=== PATIENT | male | born 1975 | race Caucasian/White ===

== ENCOUNTER 2018-04-13 05:43 | Inpatient (IN) ==
[2018-04-13] MEDS ORDERED: Aspirin 81 MG TAB.CHEW PO ONE (05:57)
--- NOTE | 2018-04-13 06:06 | Emergency Department Note ---
Disposition Clinical Impression: Bradycardia Chest pain Qualifiers: Chest pain type: unspecified Qualified Code(s): R07.9 - Chest pain, unspecified Hypotension Qualifiers: Hypotension type: unspecified hypotension type Qualified Code(s): I95.9 - Hypotension, unspecified Disposition: Admitted As Inpatient Condition: Serious Time of Disposition: 06:53 Chest Pain HPI - General Chief Complaint: ED Chest Pain Stated Complaint: chest pain Time Seen by Provider: 04/13/18 05:44 Source: patient Mode of arrival: private vehicle Limitations: no limitations Vital Signs Reviewed: Yes Nursing Notes Reviewed: Yes - History of Present Illness HPI Narrative: 43-year-old male no medical history presents to the ER due to chest pain. It awoke him from sleep roughly 5 AM. Denies prior history of this previously. Denies any recent illnesses. It felt like a heaviness in his chest as well as shortness of breath. He broke out into a sweat when he got here and felt nauseated. No vomiting. No prior history of coronary artery disease. Denies any alcohol or drug use. No other complaints. 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 Denies: vomiting Treatments prior to arrival chest pain: none - Related Data On Oral Contraceptives: No Home Medications Medication Instructions Recorded Confirmed Advil 01/25/17 Previous Rx's Medication Instructions Recorded Amoxicillin [Amoxil] 500 mg PO BID #20 capsule 01/25/17 Ibuprofen [Motrin] 800 mg PO Q8HR #30 tablet 01/25/17 Magic Mouthwash [Magic Mouthwash 10 ml PO QID #240 ml 01/25/17 BLM] Allergies Allergy/AdvReac Type Severity Reaction Status Date / Time No Known Allergies Allergy Verified 01/25/17 19:53 All systems ED: reviewed and negative except as stated. Constitutional: Denies: fever Cardiovascular: Reports: chest pain Respiratory: Reports: dyspnea. Denies: cough Gastrointestinal: Reports: nausea. Denies: abdominal pain, vomiting, diarrhea Chest Pain PMH - Past Medical History Medical history: Reports: no medical history Surgical history: Reports: no surgical history - Social History Smoking Status: Current every day smoker Alcohol use: Reports: none Drug use: Reports: none Physical Exam - General Limitations: no limitations General appearance: alert, in distress - Head Head exam: atraumatic, normocephalic - Eye Eye exam: Present: normal appearance - ENT ENT exam: normal exam - Neck Neck exam: Present: normal inspection - Chest Chest inspection: Present: normal inspection, symmetric chest wall rise - Respiratory Respiratory exam: Present: normal lung sounds bilaterally - Cardiovascular Cardiovascular exam: Present: regular rate, normal rhythm, normal heart sounds - Abdominal Exam Abdominal exam: Present: soft, Non-Tender. Absent: tenderness, distention, rigidity - Extremities Exam Extremities exam: Present: normal inspection, full ROM - Expanded Upper Extremity Exam Shoulder exam: Present: normal inspection, full ROM Arm exam: Present: normal inspection, full ROM Elbow exam: Present: normal inspection, full ROM Forearm/Wrist exam: Present: normal inspection, full ROM Hand exam: Present: normal inspection, full ROM - Expanded Lower Extremity Exam Hip/Pelvis exam: Present: normal inspection, full ROM Upper leg exam: Present: normal inspection, full ROM Knee exam: Present: normal inspection, full ROM Lower leg exam: Present: normal inspection, full ROM Ankle exam: Present: normal inspection, full ROM Foot/toe exam: Present: normal inspection, full ROM - Skin Skin exam: Present: warm, dry Course Course Narrative: Patient seen and examined. Vital signs reviewed. He appears generally unwell on exam. His initial EKG does not meet STEMI criteria. However we will continue serial EKGs, chest x-ray, labs. Patient given aspirin. He will require admission. - Reevaluation(s) Reevaluation #1: Continued serial EKGs show no true progression however the patient became hypotensive and bradycardic necessitating atropine. Crash cart in the room. Patient attached pads. - Consultations Consultation #1: I spoke with the tool and die supervisor Dr. Palma. Discussed the patient 's history exam EKG and concerns. Plan to send the EKG for his interpretation as well. Time: 06:20 Consultation #2: I spoke with the on-call mobile heavy equipment mechanic again as the patient was having episodes of bradycardia into the 40s and became hypotensive requiring a push of atropine. Dr. Palma recommends to make the patient a STEMI alert to hold on giving him Brilinta and to bolus with heparin. Time: 06:39 Vital Signs Temperature 97.6 F 04/13/18 05:46 Pulse Rate 69 04/13/18 05:46 Respiratory Rate 18 04/13/18 05:46 Blood Pressure 111/69 04/13/18 05:46 O2 Sat by Pulse Oximetry 95 04/13/18 05:46 Temperature 97.6 F 04/13/18 05:46 Pulse Rate 59 04/13/18 06:52 Respiratory Rate 20 04/13/18 06:52 Blood Pressure 115/77 04/13/18 06:52 O2 Sat by Pulse Oximetry 98 04/13/18 06:52 Oxygen Delivery Oxygen Delivery Room Air Chest Pain - MDM Narrative Medical decision making narrative: 43-year-old male presents to the ER due to chest pain shortness of breath nausea and diaphoresis. Initial EKG was worrisome given his symptoms and story however he does not meet STEMI criteria on his EKG. He did have an episode of bradycardia and hypotension requiring medical reversal. This case was discussed multiple times with the tool and die supervisor who we decided to make a STEMI alert for expedition of care. The patient was given aspirin and loaded with heparin. He is admitted to the intensive care unit by interventional cardiology for emergent left heart catheterization. - Lab Data Lab results reviewed: Yes I reviewed the patient's lab results. Result diagrams: 04/13/18 05:55 04/13/18 05:55 Lab Results 04/13/18 04/13/18 04/13/18 Range/Units 05:55 05:55 05:55 WBC 11.6 H (4.3-11.1) K/mcL RBC 5.77 H (4.19-5.50) M/mcL Hgb 16.9 (12.9-16.9) g/dL Hct 49.5 (37.5-50.1) % MCV 85.8 (83.0-100.0) fL MCH 29.3 (28.0-33.3) pg MCHC 34.1 (31.6-35.5) g/dL RDW 13.2 (11.5-14.5) % Plt Count 239 (140-400) K/mcL MPV 10.2 (9.4-12.4) fL Immature Gran % 0.4 (0-4) % Seg Neutrophils % 69.2 % Lymphocytes % 21.6 % Monocytes % 5.7 % Eosinophils % 2.8 % Basophils % 0.3 % Neutrophils # 8.0 (1.6-8.9) K/mcL Lymphocytes # 2.5 (0.6-4.6) K/mcL Monocytes # 0.7 (0.0-1.3) K/mcL Eosinophils # 0.3 (0.0-0.6) K/mcL Basophils # 0.0 (0.0-0.2) K/mcL PT 12.0 (9.4-12.1) Seconds INR 1.1 APTT 27.8 (26.0-36.0) Seconds Sodium (136-145) mEq/L Potassium (3.5-5.1) mEq/L Chloride (98-107) mEq/L Carbon Dioxide (23-29) mEq/L BUN (6-20) mg/dL Creatinine (0.70-1.30) mg/dL Est GFR ( Amer) (> 60) Est GFR (Non-Af Amer) (> 60) BUN/Creatinine Ratio (6-26) Glucose (70-105) mg/dL Calculated Osmolality (280-300) Calcium (8.6-10.3) mg/dL Troponin I (< 0.04) ng/mL B-Natriuretic Peptide 8 (Less than 100) pg/mL 04/13/18 Range/Units 05:55 WBC (4.3-11.1) K/mcL RBC (4.19-5.50) M/mcL Hgb (12.9-16.9) g/dL Hct (37.5-50.1) % MCV (83.0-100.0) fL MCH (28.0-33.3) pg MCHC (31.6-35.5) g/dL RDW (11.5-14.5) % Plt Count (140-400) K/mcL MPV (9.4-12.4) fL Immature Gran % (0-4) % Seg Neutrophils % % Lymphocytes % % Monocytes % % Eosinophils % % Basophils % % Neutrophils # (1.6-8.9) K/mcL Lymphocytes # (0.6-4.6) K/mcL Monocytes # (0.0-1.3) K/mcL Eosinophils # (0.0-0.6) K/mcL Basophils # (0.0-0.2) K/mcL PT (9.4-12.1) Seconds INR APTT (26.0-36.0) Seconds Sodium 139 (136-145) mEq/L Potassium 2.8 L (3.5-5.1) mEq/L Chloride 104 (98-107) mEq/L Carbon Dioxide 28 (23-29) mEq/L BUN 4 L (6-20) mg/dL Creatinine 0.90 (0.70-1.30) mg/dL Est GFR ( Amer) > 60 (> 60) Est GFR (Non-Af Amer) > 60 (> 60) BUN/Creatinine Ratio 4 L (6-26) Glucose 156 H (70-105) mg/dL Calculated Osmolality 288 (280-300) Calcium 9.3 (8.6-10.3) mg/dL Troponin I < 0.03 (< 0.04) ng/mL B-Natriuretic Peptide (Less than 100) pg/mL - Radiology Data Radiology results reviewed: Yes I reviewed the patient's radiology results. - EKG Data EKG attestation: Yes I reviewed and interpreted this EKG. EKG results narrative: EKG demonstrates sinus bradycardia with a rate of 57 bpm. Normal axis. Prolonged QRS duration of 138. Other intervals normal. Normal R-wave progression. There are slight subtle less than [address] elevations in leads 2 and aVF. No reciprocal changes. No prior EKG for comparison. Repeat EKG continues to demonstrate sinus bradycardia. Normal axis. Prolonged QRS duration. Normal R-wave progression. Continued less than 1 mm elevation in leads 2 and aVF. No reciprocal changes. No changes from prior. Repeat EKG demonstrates sinus bradycardia with a rate of 57 bpm. Normal axis. Prolonged QRS duration 1:30. Other intervals normal. Continued elevations of leads 2 and aVF. No gross changes from prior EKG. Heart Score - Score History: Highly Suspicious EKG: Non Specific repolarisation Disturbance Age: Less than 45 Risk Factors: No risk factors known Troponin: Less than normal limit HEART Score Total: 3
[2018-04-13 06:15] LABS: Basophils % 0.3 %; Eosinophils # 0.3 K/mcL (0.0-0.6); Eosinophils % 2.8 %; Hematocrit 49.5 % (37.5-50.1); Hemoglobin 16.9 g/dL (12.9-16.9); Immature Granulocytes % 0.4 % (0-4); Lymphocytes # 2.5 K/mcL (0.6-4.6); Lymphocytes % 21.6 %; Mean Corpuscular HGB Conc 34.1 g/dL (31.6-35.5); Mean Corpuscular Hemoglobin 29.3 pg (28.0-33.3); Mean Corpuscular Volume 85.8 fL (83.0-100.0); Mean Platelet Volume 10.2 fL (9.4-12.4); Monocytes # 0.7 K/mcL (0.0-1.3); Monocytes % 5.7 %; Platelet Count 239 K/mcL (140-400); Red Blood Count 5.77 M/mcL (4.19-5.50); Red Cell Distribution Width 13.2 % (11.5-14.5); Segmented Neutrophils % 69.2 %
[2018-04-13 06:18] LABS: INR 1.1
[2018-04-13 06:21] LABS: Activated Partial Thrombo Time 27.8 Seconds (26.0-36.0)
[2018-04-13 06:31] LABS: BUN/Creatinine Ratio 4 (6-26); Blood Urea Nitrogen 4 mg/dL (6-20); Calcium 9.3 mg/dL (8.6-10.3); Carbon Dioxide 28 mEq/L (23-29); Chloride 104 mEq/L (98-107); Glucose 156 mg/dL (70-105); Osmolality,Calculated 288 (280-300); Potassium 2.8 mEq/L (3.5-5.1); Sodium 139 mEq/L (136-145); eGFR For Non-African Americans > 60 (> 60)
[2018-04-13 06:33] LABS: Troponin I < 0.03 ng/mL (< 0.04)
[2018-04-13] MEDS ORDERED: *HR* Heparin 5,000 UNIT/ML VIAL IVP ONE (06:34)
[2018-04-13] MEDS ORDERED: *HR* Heparin 5,000 UNIT/ML VIAL IVP PRN ×2 (06:34)
[2018-04-13] MEDS ORDERED: Isovue-370 500 ML INFUS..BTL IV ONE (06:35)
[2018-04-13] MEDS ORDERED: *HR* Atropine Sulfate 1 MG/10 ML SYRINGE IVP ONE (06:39)
[2018-04-13] MEDS ORDERED: Heparin 25,000 UNIT/500 ML D5W 25,000 UNIT/500 ML BAG IVC SCH (06:45)
[2018-04-13] MEDS ORDERED: Nitroglycerin 25 MG/250 ML INFUS..BTL IVC SCH (06:45)
[2018-04-13] MEDS ORDERED: Nitroglycerin 25 MG/250 ML INFUS..BTL IVC ONE (06:46)
[2018-04-13] MEDS ORDERED: Heparin 25,000 UNIT/500 ML D5W 25,000 UNIT/500 ML BAG IVC ONE (06:46)
--- NOTE | 2018-04-13 06:53 | Emergency Department Note ---
Disposition Clinical Impression: Bradycardia Chest pain Qualifiers: Chest pain type: unspecified Qualified Code(s): R07.9 - Chest pain, unspecified Hypotension Qualifiers: Hypotension type: unspecified hypotension type Qualified Code(s): I95.9 - Hypotension, unspecified Disposition: Admitted As Inpatient Condition: Serious Time of Disposition: 06:53 General Adult HPI - General Chief complaint: ED Chest Pain Stated complaint: chest pain Time Seen by Provider: 04/13/18 05:44 Source: patient Mode of arrival: private vehicle Limitations: no limitations Nursing Notes Reviewed: Yes Vital Signs Reviewed: Yes - History of Present Illness Pain Scale: 3 - Related Data Home Medications Medication Instructions Recorded Confirmed Advil 01/25/17 Previous Rx's Medication Instructions Recorded Amoxicillin [Amoxil] 500 mg PO BID #20 capsule 01/25/17 Ibuprofen [Motrin] 800 mg PO Q8HR #30 tablet 01/25/17 Magic Mouthwash [Magic Mouthwash 10 ml PO QID #240 ml 01/25/17 BLM] Allergies Allergy/AdvReac Type Severity Reaction Status Date / Time No Known Allergies Allergy Verified 01/25/17 19:53 Constitutional: Denies: fever Cardiovascular: Reports: chest pain Respiratory: Reports: dyspnea. Denies: cough Gastrointestinal: Reports: nausea. Denies: abdominal pain, vomiting, diarrhea Past Medical History - Past Medical History Medical history: Reports: no medical history Surgical history: Reports: no surgical history - Social History Smoking Status: Current every day smoker Smokeless Tobacco Status: No Alcohol use: Reports: none Drug use: Reports: none Physical Exam - General Limitations: no limitations General appearance: alert, in distress Course Vital Signs Temperature 97.6 F 04/13/18 05:46 Pulse Rate 69 04/13/18 05:46 Respiratory Rate 18 04/13/18 05:46 Blood Pressure 111/69 04/13/18 05:46 O2 Sat by Pulse Oximetry 95 04/13/18 05:46 Temperature 97.6 F 04/13/18 05:46 Pulse Rate 62 04/13/18 07:03 Respiratory Rate 18 04/13/18 07:03 Blood Pressure 129/88 04/13/18 07:03 O2 Sat by Pulse Oximetry 97 04/13/18 07:03 Oxygen Delivery Oxygen Delivery Room Air Medical Decision Making - Lab Data Lab results reviewed: Yes I reviewed the patient's lab results. Result diagrams: 04/13/18 05:55 04/13/18 05:55 Lab Results 04/13/18 04/13/18 04/13/18 Range/Units 05:55 05:55 05:55 WBC 11.6 H (4.3-11.1) K/mcL RBC 5.77 H (4.19-5.50) M/mcL Hgb 16.9 (12.9-16.9) g/dL Hct 49.5 (37.5-50.1) % MCV 85.8 (83.0-100.0) fL MCH 29.3 (28.0-33.3) pg MCHC 34.1 (31.6-35.5) g/dL RDW 13.2 (11.5-14.5) % Plt Count 239 (140-400) K/mcL MPV 10.2 (9.4-12.4) fL Immature Gran % 0.4 (0-4) % Seg Neutrophils % 69.2 % Lymphocytes % 21.6 % Monocytes % 5.7 % Eosinophils % 2.8 % Basophils % 0.3 % Neutrophils # 8.0 (1.6-8.9) K/mcL Lymphocytes # 2.5 (0.6-4.6) K/mcL Monocytes # 0.7 (0.0-1.3) K/mcL Eosinophils # 0.3 (0.0-0.6) K/mcL Basophils # 0.0 (0.0-0.2) K/mcL PT 12.0 (9.4-12.1) Seconds INR 1.1 APTT 27.8 (26.0-36.0) Seconds Sodium (136-145) mEq/L Potassium (3.5-5.1) mEq/L Chloride (98-107) mEq/L Carbon Dioxide (23-29) mEq/L BUN (6-20) mg/dL Creatinine (0.70-1.30) mg/dL Est GFR ( Amer) (> 60) Est GFR (Non-Af Amer) (> 60) BUN/Creatinine Ratio (6-26) Glucose (70-105) mg/dL Calculated Osmolality (280-300) Calcium (8.6-10.3) mg/dL Troponin I (< 0.04) ng/mL B-Natriuretic Peptide 8 (Less than 100) pg/mL 04/13/18 Range/Units 05:55 WBC (4.3-11.1) K/mcL RBC (4.19-5.50) M/mcL Hgb (12.9-16.9) g/dL Hct (37.5-50.1) % MCV (83.0-100.0) fL MCH (28.0-33.3) pg MCHC (31.6-35.5) g/dL RDW (11.5-14.5) % Plt Count (140-400) K/mcL MPV (9.4-12.4) fL Immature Gran % (0-4) % Seg Neutrophils % % Lymphocytes % % Monocytes % % Eosinophils % % Basophils % % Neutrophils # (1.6-8.9) K/mcL Lymphocytes # (0.6-4.6) K/mcL Monocytes # (0.0-1.3) K/mcL Eosinophils # (0.0-0.6) K/mcL Basophils # (0.0-0.2) K/mcL PT (9.4-12.1) Seconds INR APTT (26.0-36.0) Seconds Sodium 139 (136-145) mEq/L Potassium 2.8 L (3.5-5.1) mEq/L Chloride 104 (98-107) mEq/L Carbon Dioxide 28 (23-29) mEq/L BUN 4 L (6-20) mg/dL Creatinine 0.90 (0.70-1.30) mg/dL Est GFR ( Amer) > 60 (> 60) Est GFR (Non-Af Amer) > 60 (> 60) BUN/Creatinine Ratio 4 L (6-26) Glucose 156 H (70-105) mg/dL Calculated Osmolality 288 (280-300) Calcium 9.3 (8.6-10.3) mg/dL Troponin I < 0.03 (< 0.04) ng/mL B-Natriuretic Peptide (Less than 100) pg/mL - EKG Data EKG #1 EKG attestation: Yes I reviewed and interpreted this EKG. EKG results narrative: Initial EKG shows a sinus bradycardia with ventricular rate of 57. This arrhythmia. Intraventricular conduction delay. No previous EKG for comparison. There is a scant of ST elevation in the inferior leads but does not meet STEMI criteria. No reciprocal changes. EKG #2 EKG attestation: Yes I reviewed and interpreted this EKG. EKG results narrative: Repeat EKG obtained approximately 30 minutes after the initial EKG is essentially unchanged. Sinus bradycardia with short MI with ventricular rate of 50. Intraventricular conduction delay. Still a hint of inferior ST segment elevation with no reciprocal changes but the ST elevation does not meet STEMI criteria. EKG #3 EKG attestation: Yes I reviewed and interpreted this EKG. EKG results narrative: A third EKG was obtained when patient developed some increased chest pain and became more diaphoretic. This showed sinus bradycardia with a ventricular rate of 57. There does appear to be some increase in the ST segment elevation in the inferior leads but still does not meet STEMI criteria. Patient then developed bradycardia down to a rate of about 40 and became hypotensive with a systolic pressure down to 80. He received atropine 5 mg IV with improvement in his heart rate and blood pressure. Critical Care Time Critical Care Time: Yes Total Critical Care Time: 40 Attestation: Critical care performed: Time is exclusive of separately billable procedures. Time includes: direct patient care, patient reassessment, coordination of patient care, interpretation of data (laboratory data, radiology data, and respiratory data), review of patient's medical records, medical consultation and documentation of patient care. Procedures included in critical care time: Procedures excluded from critical care time: Attestation Statement - Attestation Attestation: I, Jose Paredes MD, personally evaluated this patient and discussed their management with the resident physician. I reviewed the resident's note and agree with the documented findings, medical decision making, and plan of care. 43-year-old male presents to the emergency department with complaint of severe mid substernal chest pain which awoke him from sleep 1 hour prior to arrival. The pain radiated to the back and both shoulders. He did have shortness of breath with the pain and stated it hurt to breathe. He also had nausea but no vomiting. He became diaphoretic. No prior cardiac history. No history of hypertension or diabetes. Patient is a smoker. On examination patient is a well-developed well-nourished male in acute distress. He is very pale and diaphoretic. No cyanosis. There is some tenderness palpation over the anterior chest wall. Breath sounds are clear and equal bilaterally. Heart regular with a mild bradycardia. Abdomen soft and nontender with normal bowel sounds. No pedal edema. Labs and EKG reviewed. EKG suspicious for early inferior infarct but does not meet STEMI criteria. Repeat EKG obtained with slight worsening of the ST elevation. The EKGs were reviewed with the engine installer, Dr. Palma. He initially recommended treating patient with a heparin drip and nitro drip and admission to the hospital. After patient had an episode of increased pain and became bradycardic and hypotensive he was contacted again and decided to go ahead and call a STEMI alert and intact patient to the [facility] immediately.
[2018-04-13] MEDS ORDERED: ISOVUE-370 200 ML INFUS..BTL IV ONE (07:01)
[2018-04-13] MEDS ORDERED: Heparin 1,000 UNITS/500 mL 500 ML ONE (07:01)
[2018-04-13] MEDS ORDERED: *HR* Heparin 10,000 UNIT/10 ML VIAL ONE (07:01)
[2018-04-13] MEDS ORDERED: Nitroglycerin 1,000 MCG/10 ML VIAL IV ONE (07:02)
[2018-04-13] MEDS ORDERED: 0.9 % Sodium Chloride 1,000 ML ONE ×2 (07:02→07:07)
[2018-04-13] MEDS ORDERED: Ondansetron 4 MG/2 ML VIAL IVP ONE (07:06)
[2018-04-13] MEDS ORDERED: Ondansetron 4 MG/2 ML VIAL ONE (07:06)
[2018-04-13] MEDS ORDERED: *HR* FentaNYL (PF) 100 MCG/2 ML VIAL ONE ×2 (07:31→07:38)
[2018-04-13] MEDS ORDERED: *HR* Midazolam HCl 5 MG/5 ML VIAL IVP ONE (07:31)
[2018-04-13] MEDS ORDERED: Tirofiban 12.5 MG/250ML 12.5 MG/250 ML BAG ONE (07:32)
[2018-04-13] MEDS ORDERED: *HR* Atropine Sulfate 1 MG/10 ML SYRINGE ONE (07:32)
[2018-04-13] MEDS ORDERED: *HR* Atropine Sulfate 1 MG/10 ML SYRINGE IV ONE (08:26)
--- NOTE | 2018-04-13 08:36 | Pre-Sedation Evaluation ---
Pre-sedation evaluation - Pre-sedation checklist Date of procedure: 04/13/18 Procedure: [facility] Recent Vitals: Last Vital Signs Temp 97.6 F 04/13/18 05:46 Pulse 64 04/13/18 07:08 Resp 18 04/13/18 07:08 BP 134/96 04/13/18 07:08 Pulse Ox 97 04/13/18 07:08 H&P (including ROS) documented in medical record: Yes Previous reaction to sedatives/anesthetics: No Dietary Status: unknown Airway Assessment: Patient can open mouth completely, TMJ function normal ASA Classification *see protocol: CLASS II-Mild systemic disease, E-EMERGENCY- Add to any of the above to indicate emergent Plan of Care: Pt appropriate candidate for procedure/moderate/conscious sedation , Risks/benefits of procedure/sedation discussed w/ patient/family, If not NPO; Risk of intake outweiged by necessity to perform procedure Cardiac Registry (Cardio Only) - Functional Capacity Functional Capacity: >=4 METS with symptoms - Clincal Frailty Scale Clinical Frailty Scale: Managing Well
[2018-04-13] MEDS ORDERED: Ondansetron 4 MG/2 ML VIAL IVP PRN (08:38)
[2018-04-13] MEDS ORDERED: Nicotine 21 MG PATCH.TD24 TD PRN (08:42)
[2018-04-13] MEDS ORDERED: Tirofiban 12.5 MG/250ML 12.5 MG/250 ML BAG IVC SCH (08:45)
--- NOTE | 2018-04-13 08:49 | Cardiology History & Physical ---
Date of Encounter: 04/13/18 Time of Encounter: 08:45 Assessment and Plan (1) Acute MO Current Visit: Yes Status: Acute Atypical EKG with borderline inferolateral ST elevation with ongoing severe symptoms/angina despite NTG drip. Leukocytosis in this setting suggestive of acute MO. A/R/B of C discussed with him including 1% chance of MO//CVA/ CABG/RICHARD/bleeding. Pt aware and agreeable with proceeding. Cardiac rehab, EF assessment, smoking cessation. The assessment and plan as outlined above was discussed with the patient and/or family members who expressed understanding and agreement. All questions were answered. Qualifiers: Myocardial infarction type: unspecified Involved coronary artery: other coronary artery Qualified Code(s): I21.29 - ST elevation (STEMI) myocardial infarction involving other sites (2) Nicotine dependence Current Visit: Yes Status: Acute Smoking cessation counseled, nicotine patch. The assessment and plan as outlined above was discussed with the patient and/or family members who expressed understanding and agreement. All questions were answered. Qualifiers: Nicotine product type: cigarettes Substance use status: uncomplicated Qualified Code(s): F17.210 - Nicotine dependence, cigarettes, uncomplicated (3) Hypokalemia Current Visit: Yes Status: Acute replete, goal >4. The assessment and plan as outlined above was discussed with the patient and/or family members who expressed understanding and agreement. All questions were answered. History of Present Illness Chief complaint: chest pain HPI: Mr. Silva is a 43 year old male smoker with no previous cardiac history awoke ~ 4am with 10/10 severe chest pressure/pain with nausea. It was associated with diaphoresis and he proceeded to ED. It persisted despite NTG drip and EKG showed subtle inferolateral ST elevation that could be interpreted as early repolarization too. Past Med Surg Social Fam HX - Past Medical History Medical history: no medical history - Past Surgical History Surgical History: no surgical history - Social History Smoking Status: Current every day smoker Smokeless Tobacco Status: No Alcohol use: none Drug use: none Medications and Allergies Advil 01/25/17 [History] Amoxicillin [Amoxil] 500 mg PO BID #20 capsule 01/25/17 [Rx] Ibuprofen [Motrin] 800 mg PO Q8HR #30 tablet 01/25/17 [Rx] Magic Mouthwash [Magic Mouthwash BLM] 10 ml PO QID #240 ml 01/25/17 [Rx] 3 Allergy/AdvReac Type Severity Reaction Status Date / Time No Known Allergies Allergy Verified 01/25/17 19:53 All Systems Review: The remainder of the systems were reviewed and are negative - Constitutional Constitutional: no chills, no fever(s) - EENT Eyes: no blurred vision, no loss of vision Nose, mouth and throat: no bleeding gums, no epistaxis - Cardiovascular Cardiovascular: chest pain at rest, chest pain with exertion, diaphoresis - Respiratory Respiratory: no hemoptysis, no wheezing - Gastrointestinal Gastrointestinal: no hematemesis, no hematochezia - Genitourinary Genitourinary: no hematuria, no nocturia - Musculoskeletal Musculoskeletal: no arthralgias, no back pain - Integumentary Integumentary: no erythema, no unusual bruising - Neurological Neurological: no memory loss, no syncope - Psychiatric Psychiatric: no hallucinations, no panic attacks - Hematological/Lymphatic Hematologic/Lymphatic: no easy bleeding, no easy bruising Physical Examination Vital Signs, Last 4 Hours Pulse Resp BP Pulse Ox 04/13/18 07:08 64 18 134/96 97 04/13/18 07:03 62 18 129/88 97 04/13/18 06:58 65 18 125/88 96 04/13/18 06:52 59 20 115/77 98 General: Other (distressed despite fentanyl) HEENT: Atraumatic Neck: No JVD Cardiac: Reg Rate and Rhythm Lungs: Normal Breath Sounds Neuro: Alert and responsive Abdomen: Soft Skin: No rashes noted on visualized skin Musculoskeletal: No Chest Wall Tenderness Extremities: No Edema Results 04/13/18 05:55 04/13/18 05:55 - EKG Interpretation EKG results cardiology: personally reviewed, sinus rhythm (inferolateral borderline ST elevation versus early repolarization)
--- NOTE | 2018-04-13 08:49 | Invasive Diagnostic Lab Proc ---
Name: Ruy Silva Date of Study: 04/13/2018 Date: 1975 Ht: 70.1in Medical Record#: [id number] Age: 43 Wt: 178.57lb Gender: Male BSA: 1.99 Order #: [id number] BMI: 25.56 Physicians Procedure Physician: Gilbert Palma Referring MD: Referring MD: Staff Name Position Time In [facility], [facility] RT (R) Scrub 07:19 AM David Salvador RN Monitor 07:24 AM Thu Fountain RN Clinical Nurse Leader 07:24 AM Tara Roa RN Clinical Nurse Leader 07:24 AM Indications Indication STEMI Procedures Performed Procedure PRQ CARD REVASC WI 1 VSL L HRT ARTERY/VENTRICLE ANGIO Pre-Procedure Checklist Informed consent is complete signed and on chart. H&P is on chart. ID band is on and ID verified with patient. Patient NPO for procedure The procedure was described for the patient and questions were answered. Blood Pressure: 85/50 ECG is on chart. Rhythm: Sinus Bradycardia Plan of Care Patient will tolerate the procedure without complications. Adequate level of comfort will be maintained. Hemodynamics will remain stable Patient will recover from procedure without complications. Respiratory function will be maintained. Cardiac rhythm will remain stable. Patient temperature will be maintained. Patient and/or family have verbalized understanding of the procedure. Patient Education Chief Complaint/Reason for Test: Cardiac Cath Developmental Category: Adult (18-64 years) Developmentally Appropriate for Age: Yes Learning Barriers: None Education Needs: Procedure Education Method: Verbal Information Taught: Cardiac Cath Educational Evaluation: Able to repeat information Intravenous Access Time IV Size Location DC'd Fluid/Drip Rate Units RN 18g 1 1" Patent On Arrival Rt Antecubital Thu Fountain RN 18g 1 1/4" Patent On Arrival Lt Antecubital Thu Fountain RN Allergies No Known Allergies Vital Signs Time BP (mmHg) HR (bpm) O2 Sat. RR (bpm) LOC 07:22 AM / % 5 = Fully awake and oriented or at pre-proc level 07:22 AM / % 5 = Fully awake and oriented or at pre-proc level 07:39 AM / % 4 = Oriented but drowsy 07:21 AM 127 / 85 63 100 % 29 07:26 AM 130 / 85 54 100 % 17 07:31 AM 132 / 82 74 100 % 21 07:36 AM 111 / 75 56 96 % 16 07:42 AM 128 / 85 60 91 % 14 07:46 AM 131 / 98 83 99 % 13 07:51 AM 115 / 74 84 96 % 19 07:56 AM 124 / 81 84 97 % 17 08:01 AM 132 / 85 81 100 % 18 08:06 AM 135 / 92 80 100 % 22 08:11 AM 126 / 86 74 100 % 27 08:17 AM 127 / 79 84 97 % 19 08:22 AM 120 / 79 77 94 % 19 08:26 AM 122 / 73 71 99 % 13 Procedural Medications Time Medication Dose Units Method Given By 07:22 AM Oxygen 2 L/min nasal cannula Thu Fountain RN 07:39 AM Fentanyl 75 mcg Intravenous Thu Fountain RN 07:42 AM Versed 2 mg Intravenous Thu Fountain RN 07:44 AM Lidocaine 2% 11 ml Subcutaneous Gilbert Palma 07:47 AM Oxygen 6 L/min Oxy Mask Tara Roa RN 07:48 AM Nitroglycerin 200 mcg Intracoronary Cullen Herrmann MD 07:57 AM Heparin 2000 units Intravenous Thu Fountain RN 08:04 AM Aggrastat Bolus: 42 ml Intravenous Thu Fountain RN 08:05 AM Aggrastat 12.5mg/250ml 15 ml/hr Intravenous Thu Fountain RN 08:16 AM Versed 1 mg Intravenous Thu Fountain RN 08:17 AM Fentanyl 25 mcg Intravenous Thu Fountain RN 08:20 AM Versed 1 mg Intravenous Thu Fountain RN 08:20 AM Fentanyl 25 mcg Intravenous Thu Fountain RN 08:21 AM Versed 1 mg Intravenous Thu Fountain RN 08:21 AM Fentanyl 25 mcg Intravenous Thu Fountain RN 08:26 AM Plavix 600 mg Orally Thu Fountain RN ASA Classification: Emergent Procedure: ASA score is assumed Mag Score Preprocedure Postprocedure Activity 2- Moves 4 extremities sustained head lift Activity 2- Moves 4 extremities sustained head lift Circulation 2- SBP +/= 20 points of pre-anesthetic level Circulation 2- SBP +/= 20 points of pre-anesthetic level Consciousness 2- Awake and alert oriented x 3 Consciousness 2- Awake and alert oriented x 3 O2 Saturation 2- Able to maintain O2 satruation of 92% on room air O2 Saturation 2- Able to maintain O2 satruation of 92% on room air Respiratory 2- Able to deep breathe and cough well Respiratory 2- Able to deep breathe and cough well Total Score 10 Total Score 10 Contrast Agent: Isovue Diagnostic Contrast: 111 ml Total Contrast: 111 ml Fluoro Dose: 29 mGy Activated Clotting Time Time Seconds to Clot 07:56 AM 217 08:12 AM 179 Procedure Log Time Note Enter By 07:19 AM CathStat 07:19 AM 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 Bilateral groin prepped with Chloraprep by Thu Fountain RN, then patient was draped. Skin intact. [facility] 07:20 AM Meet and greet completed [facility] 07:20 AM Sign in performed according to hospital policy. [facility] 07:20 AM Procedure start 07:20 [facility] 07:20 AM Vitals capture started with the following parameters, Patient=Adult, Interval=5 min, Initial Pzkxwera=208 mmHg, Deflation Rate=3 mmHg, Cuff placed on Right Arm 07:20 AM Recorded ECG: HR=57 Condition=Condition 1 07:21 AM HR=63 bpm, QTCR=609/85 mmhg, BqW4=291.0 %, Resp=29 B/min 07:22 AM Time: : Oxygen on at 2 L/min per nasal cannula by Thu Fountain RN [facility] AM Time: 07:22 Patient comfortable and pain free: Yes [facility] :22 AM Time: :LOC: 5 = Fully awake and oriented or at pre-proc level [facility] :22 AM Clinical Presentation: STEMI or equivalent [facility] 07:24 AM David Salvador RN Position: Monitor Time in: 07:24 [facility] AM Thu Fountain RN Position: Clinical Nurse Leader Time in: :24 viola 07:25 AM Tara Roa RN Position: Clinical Nurse Leader Time in: 24 [facility] 07:26 AM HR=54 bpm, FUJW=392/85 mmhg, CgU8=331.0 %, Resp=17 B/min, Comment=sb 07:31 AM HR=74 bpm, FRQF=159/82 mmhg, SoG0=893.0 %, Resp=21 B/min 07:36 AM HR=56 bpm, WDCJ=116/75 mmhg, SpO2=96.0 %, Resp=16 B/min, Comment=sb 07:37 AM 75mcg Fentanyl ordered per Dr. Herrmann telephone order for chest pain [email or web address] 07:39 AM Time: 07:22 Patient comfortable and pain free: Yes [email or web address] 07:39 AM Time: 07:22LOC: 5 = Fully awake and oriented or at pre-proc level jcallmila 07:39 AM Time: 07:39 Fentanyl 75 mcg Intravenous Given by Thu Fountain RN 07:41 AM Physician arrived 07:41 jckhadar 07:42 AM Time: 07:42 Versed 2 mg Intravenous Given by Thu Fountain RN 07:42 AM HR=60 bpm, WIDM=242/85 mmhg, SpO2=91.0 %, Resp=14 B/min 07:44 AM Time out performed according to hospital policy [facility] 07:44 AM Time: 07:44 11 ml Lidocaine 2% to right groin Subcutaneous Given by Gilbert Palma 07:46 AM Access obtained by percutaneous puncture. 6Fr 10cm Terumo [place] sheath placed in right Femoral artery. [id number] [facility] 07[facility]46 AM HR=83 bpm, PWCY=310/98 mmhg, SpO2=99.0 %, Resp=13 B/min 07:47 AM Time: 07:47 Oxygen on at 6 L/min per Oxy Mask by Tara Roa RN 07:48 AM 5Fr FR 4 catheter inserted over the wire DN jckhadar 07:48 AM RCA angiography performed in multiple views. [email or web address] 07:48 AM Time: 07:48 Nitroglycerin 200 mcg Intracoronary Given by Cullen Herrmann MD 07:50 AM Catheter removed jckhadar 07:50 AM 5Fr FL 4 catheter inserted over the wire DN viola 07:51 AM LCA angiography performed in multiple views. jcallihan 07:51 AM Lesion found in 1st Marginal. Pre Stenosis: 99 Pre ALONSO Flow: 2: Partial Flow/Perfusion (> 1 but < 3) jcallihan 07:51 AM HR=84 bpm, UWBD=545/74 mmhg, SpO2=96.0 %, Resp=19 B/min, Comment=sr 07:51 AM Circumflex, Obtuse Marginal, Left Posterior Descending, and Left Posterolateral Coronary Arteries with 99 % stenosis. If graft is supplying this area, 0 % stenosis jcallihan 07:52 AM Coronary Dominance: right jcallihan 07:52 AM PCI Status Urgent jcallihan 07:52 AM 6Fr EBU 3.5 Medtronic guide catheter was used to cannulate the PCI vessel successfully. reused? No jcallihan 07:53 AM .014 [place] 190cm guide wire across target lesion- successful. reused? No jcallan 07:53 AM Inflation device was opened. [email or web address] 07:53 AM Time: 07:53 Aggrastat 42 ml bolus Intravenous Given by Thu Fountain RN Dumont pump jcallih 07:53 AM Time: 07:53 Aggrastat 12.5mg/250ml 15 ml/hr Intravenous Given by Thu Fountain RN Dumont pump [facility] 07[facility]54 AM Recorded Pressure: Ao, HR=86, Condition=Condition 1 (Aorta) Ao 102/66/83 07:54 AM Recorded Pressure: Ao, HR=82, Condition=Condition 1 (Aorta) Ao 106/66/84 07:54 AM Time: 07:39LOC: 4 = Oriented but drowsy jcallan 07:54 AM Time: 07:39 Patient comfortable and pain free: Yes [email or web address] 07:54 AM 2.0 mm x 15 mm Emerge Monorail balloon across target lesion- successful. reused? No jcallihan 07:56 AM Balloon inflated @ 10 doris for 16 seconds jcallihan 07:56 AM HR=84 bpm, ETEI=288/81 mmhg, SpO2=97.0 %, Resp=17 B/min, Comment=sr 07:57 AM At 07:56 the ACT was 217 seconds. [facility] 07:57 AM Balloon inflated @ 12 doris for [address] [facility] 07:57 AM Time: 07:57 Heparin 2000 units Intravenous Given by Thu Fountain RN jcallihan 07:58 AM Recorded Pressure: Ao, HR=80, Condition=Condition 1 (Aorta) Ao 94/63/78 07:58 AM Balloon catheter removed intact. jcallihan 07:59 AM 2.5mm x 24mm Promus Premier Rx drug-eluting stent across target lesion- successful Lot #[id number] jc 07:59 AM Stent deployed @ 12 doris for 23 seconds [email or web address] 08:01 AM Stent delivery system removed intact. [email or web address] 08:01 AM HR=81 bpm, EYTS=811/85 mmhg, QtZ0=056.0 %, Resp=18 B/min, Comment=sr 08:01 AM 5Fr Pigtail catheter inserted over the wire [facility] jcallan 08:02 AM Catheter selectively placed in left ventricle jcallihan 08:02 AM Bolus angiogram of left Ventricle complete: 10 ml/sec for a total of 30 mls jcallihan 08:02 AM Recorded Pressure: LV, HR=76, Condition=Condition 1 (Left Ventricle) LV 108/-9/4 08:03 AM Recorded Pressure: LV, Ao, HR=82, Condition=Condition 1 (Left Ventricle) LV 116/-7/8, (Aorta) Ao 117/73/93 08:03 AM Catheter removed jcallihan 08:04 AM Recorded Pressure: Ao, HR=85, Condition=Condition 1 (Aorta) Ao 133/71/95 08:06 AM HR=80 bpm, SNQS=316/92 mmhg, JsX3=848.0 %, Resp=22 B/min, Comment=sr 08:09 AM Procedure completed at 08:09 04/13/2018 jcallihan 08:10 AM Did you address ALONSO flow and Dominance? Yes jcallihan 08:11 AM Sign out completed: Radiation Dose 270 mGy, 29.23 Gy/cm2 Fluoro Time: 3.0 Isovue 370 - 200ml contrast 111 ml given by Gilbert Palma. Complications: NoneCardiac Rehab Consult needed: YesConfirmed administered medications: Yes jcallihan 08:11 AM Isovue 370 - 200ml,1 Bottle(s) used. jcallihan 08:11 AM EKG atypical for STEMI per Dr. Herrmann jcallihan 08:11 AM HR=74 bpm, XQGQ=627/86 mmhg, HuN1=622.0 %, Resp=27 B/min, Comment=sr 08:11 AM Estimated Blood Loss: less than 20cc jcallmila 08:12 AM At 08:12 the ACT was 179 seconds. jcallihkristine 08:12 AM Post ECG NSR jcallihkristine 08:12 AM Post Blood Pressure 126/86 jcallihkristine 08:13 AM 08:12 Post Pulses Bilateral DP & PT 2+ jcallmila 08:13 AM 08:13 Post Pulses Bilateral radial 2+ jcallihkristine 08:13 AM Information taught Cardiac Cath, PCI, and Perclose jcallihkristine 08:13 AM Arterial sheath pulled, Perclose closure device used and was Successful [id number] S/N. allkristine 08:16 AM Education needs Procedure, Plan of Care, and Responsibilities of Patient in Care jcallmila 08:16 AM Time: 08:16 Versed 1 mg Intravenous Given by Thu Fountain RN 08:17 AM HR=84 bpm, UNDI=807/79 mmhg, SpO2=97.0 %, Resp=19 B/min, Comment=sr 08:17 AM Time: 08:17 Fentanyl 25 mcg Intravenous Given by Thu Fountain RN 08:17 AM Learning barriers :None [facility] 08[facility]17 AM Education Methods Verbal [facility] 08:17 AM Education evaluation Able to repeat information [facility] AM Family placed in consult room. allkristine 08:18 AM Complications: None viola 08:20 AM Time: 08:20 Versed 1 mg Intravenous Given by Thu Fountain RN 08:20 AM Time: 08:20 Fentanyl 25 mcg Intravenous Given by Thu Fountain RN 08:21 AM Time: 08:21 Versed 1 mg Intravenous Given by Thu Fountain RN 08:21 AM Time: 08:21 Fentanyl 25 mcg Intravenous Given by Thu Fountain RN 08:22 AM HR=77 bpm, BKCX=903/79 mmhg, SpO2=94.0 %, Resp=19 B/min, Comment=sr 08:26 AM HR=71 bpm, DNRK=057/73 mmhg, SpO2=99.0 %, Resp=13 B/min, Comment=sr 08:26 AM Time: 08:26 Plavix 600 mg Orally Given by Thu Fountain RN 08:28 AM Lesion found in Proximal RCA. Pre Stenosis: 20 Pre ALONSO Flow: [email or web address] 08:28 AM Lesion found in Distal RCA. Pre Stenosis: 70 Pre ALONSO Flow: jcallihan 08:28 AM Lesion found in Proximal LAD. Pre Stenosis: 40 Pre ALONSO Flow: jcallihan 08:29 AM Proximal Left Anterior Descending Coronary Artery with 40% stenosis. If graft is supplying this territory, 0 % stenosis. jcallihan 08:29 AM Right Coronary, Right Posterior Descending Arteries with Right Posterolateral and Acute Marginal branches with 70 % stenosis. If graft is supplying this area, 0 % stenosis jcallihan 08:29 AM Site status No bleeding/hematoma - Rt Groin as reported by Sites, Xuan RT (R) at 08:29 jcallihan 08:29 AM Opsite applied jcallihan 08:33 AM Report given to Anisha ABARCA Pt taken to ICU Room #3. 08:33 jcallihan 08:33 AM Plavix, Effient or Brilinta given Yes jcallihan 08:33 AM Patient out of room: 08:33 jcallihan Complications Complication None None Hemodynamics Pressures Site Systolic/A Wave Diastolic/V Wave Mean AO 102 66 83 AO 106 66 84 AO 94 63 78 LV 108 -9 4 LV 116 -7 8 AO 117 73 93 AO 133 71 95 Post Procedure Information Blood Pressure: 126/86 mmHg Rhythm: NSR Post procedural instructions were given Closure Device Time Device Success/Fail 04/13/2018 8:19:00 AM Perclose ProGlide Successful Site Checks Time Location Status Staff Sheath In? Note 08:29 AM Rt Groin No bleeding/hematoma Sites, Xuan RT (R) Pulses Time Site Pre-Procedure Post-Procedure Note 8:12:00 AM Bilateral DP & PT 2+ 8:13:00 AM Bilateral radial 2+ Updated by David Salvador RN on 04/13/2018 8:39:00 AM electronically signed on 04/13/2018 8:41:20 AM with status of Final
[2018-04-13] MEDS: Aspirin 81 MG TAB.CHEW PO SCH (09:01)
[2018-04-13] MEDS: Potassium Chloride 20 MEQ, Lidocaine 1% 2 ML in D5% in Water 250 ML IVPB ONE ×3 (09:02→09:43)
--- NOTE | 2018-04-13 18:11 | Invasive Diagnostic Lab Proc ---
Name: Ruy Silva Date of Study: 04/13/2018 Date: 1975 Ht: 70.1in Medical Record#: [id number] Age: 43 Wt: 178.57lb Gender: Male BSA: 1.99 Order #: [id number] BMI: 25.56 Physicians Procedure Physician: Cullen Herrmann MD, [facility] Referring MD: Referring MD: Staff Name Position Time In [facility] RT (R) Scrub 07:19 AM David Salvador RN Monitor 07:24 AM Thu Fountain RN Audit Lead 07:24 AM Tara Roa RN Audit Lead 07:24 AM Indications Indication STEMI Procedures Performed Procedure PRQ CARD REVASC MO 1 VSL L HRT ARTERY/VENTRICLE ANGIO Pre-Procedure Checklist Informed consent is complete signed and on chart. H&P is on chart. ID band is on and ID verified with patient. Patient NPO for procedure The procedure was described for the patient and questions were answered. Blood Pressure: 85/50 ECG is on chart. Rhythm: Sinus Bradycardia Plan of Care Patient will tolerate the procedure without complications. Adequate level of comfort will be maintained. Hemodynamics will remain stable Patient will recover from procedure without complications. Respiratory function will be maintained. Cardiac rhythm will remain stable. Patient temperature will be maintained. Patient and/or family have verbalized understanding of the procedure. Patient Education Chief Complaint/Reason for Test: Cardiac Cath Developmental Category: Adult (18-64 years) Developmentally Appropriate for Age: Yes Learning Barriers: None Education Needs: Procedure Education Method: Verbal Information Taught: Cardiac Cath Educational Evaluation: Able to repeat information Intravenous Access Time IV Size Location DC'd Fluid/Drip Rate Units RN 18g 1 1/4" Patent On Arrival Rt Antecubital Thu Fountain RN 18g 1 1/4" Patent On Arrival Lt Antecubital Thu Fountain RN Allergies No Known Allergies Vital Signs Time BP (mmHg) HR (bpm) O2 Sat. RR (bpm) LOC 07:22 AM / % 5 = Fully awake and oriented or at pre-proc level 07:22 AM / % 5 = Fully awake and oriented or at pre-proc level 07:39 AM / % 4 = Oriented but drowsy 07:21 AM 127 / 85 63 100 % 29 07:26 AM 130 / 85 54 100 % 17 07:31 AM 132 / 82 74 100 % 21 07:36 AM 111 / 75 56 96 % 16 07:42 AM 128 / 85 60 91 % 14 07:46 AM 131 / 98 83 99 % 13 07:51 AM 115 / 74 84 96 % 19 07:56 AM 124 / 81 84 97 % 17 08:01 AM 132 / 85 81 100 % 18 08:06 AM 135 / 92 80 100 % 22 08:11 AM 126 / 86 74 100 % 27 08:17 AM 127 / 79 84 97 % 19 08:22 AM 120 / 79 77 94 % 19 08:26 AM 122 / 73 71 99 % 13 Procedural Medications Time Medication Dose Units Method Given By 07:22 AM Oxygen 2 L/min nasal cannula Thu Fountain RN 07:39 AM Fentanyl 75 mcg Intravenous Thu Fountain RN 07:42 AM Versed 2 mg Intravenous Thu Fountain RN 07:44 AM Lidocaine 2% 11 ml Subcutaneous Cullen Herrmann MD 07:47 AM Oxygen 6 L/min Oxy Mask Tara Roa RN 07:48 AM Nitroglycerin 200 mcg Intracoronary Cullen Herrmann MD 07:57 AM Heparin 2000 units Intravenous hTu Fountain RN 08:04 AM Aggrastat Bolus: 42 ml Intravenous Thu Fountain RN 08:05 AM Aggrastat 12.5mg/250ml 15 ml/hr Intravenous Tuh Fountain RN 08:16 AM Versed 1 mg Intravenous Thu Fountain RN 08:17 AM Fentanyl 25 mcg Intravenous Thu Fountain RN 08:20 AM Versed 1 mg Intravenous Thu Fountain RN 08:20 AM Fentanyl 25 mcg Intravenous Thu Fountain RN 08:21 AM Versed 1 mg Intravenous Thu Fountain RN 08:21 AM Fentanyl 25 mcg Intravenous Thu Fountain RN 08:26 AM Plavix 600 mg Orally Thu Fountain RN ASA Classification: Emergent Procedure: ASA score is assumed Mag Score Preprocedure Postprocedure Activity 2- Moves 4 extremities sustained head lift Activity 2- Moves 4 extremities sustained head lift Circulation 2- SBP +/= 20 points of pre-anesthetic level Circulation 2- SBP +/= 20 points of pre-anesthetic level Consciousness 2- Awake and alert oriented x 3 Consciousness 2- Awake and alert oriented x 3 O2 Saturation 2- Able to maintain O2 satruation of 92% on room air O2 Saturation 2- Able to maintain O2 satruation of 92% on room air Respiratory 2- Able to deep breathe and cough well Respiratory 2- Able to deep breathe and cough well Total Score 10 Total Score 10 Contrast Agent: Isovue Diagnostic Contrast: 111 ml Total Contrast: 111 ml Fluoro Dose: 29 mGy Activated Clotting Time Time Seconds to Clot 07:56 AM 217 08:12 AM 179 Procedure Log Time Note Enter By 07:19 AM CathStat 07:19 AM Pt arrived to medical lab scientist 1 at 07:19 [facility] 07:19 AM Xuan Sánchez RT (R) Position: Scrub Time in: 07:19 [facility] 07:19 AM Patient charges- Angio tray pack, Navilyst 3mm J, Pulse Oximetry and ACIST tubing and transducer [facility] 07:20 AM Hair removed from procedure site in procedure lab using clippers. Bilateral groin prepped with Chloraprep by Thu Fountain RN, then patient was draped. Skin intact. [facility] 07:20 AM Meet and greet completed [facility] 07:20 AM Sign in performed according to hospital policy. [facility] 07:20 AM Procedure start 07:20 [facility] 07:20 AM Vitals capture started with the following parameters, Patient=Adult, Interval=5 min, Initial Strykjtf=691 mmHg, Deflation Rate=3 mmHg, Cuff placed on Right Arm 07:20 AM Recorded ECG: HR=57 Condition=Condition 1 07:21 AM HR=63 bpm, HZHA=681/85 mmhg, EoK9=536.0 %, Resp=29 B/min 07:22 AM Time: : Oxygen on at 2 L/min per nasal cannula by Thu Fountain RN [facility] : AM Time: 07:22 Patient comfortable and pain free: Yes [facility] :22 AM Time: :LOC: 5 = Fully awake and oriented or at pre-proc level jcformerly [facility] : AM Clinical Presentation: STEMI or equivalent [facility] 07:24 AM David Salvador RN Position: Monitor Time in: 07:24 [facility] 07[facility]24 AM Thu Fountain RN Position: Audit Lead Time in: 07:24 viola 07:25 AM Tara Roa RN Position: Audit Lead Time in: :24 [facility] 07:26 AM HR=54 bpm, MBVF=295/85 mmhg, HxJ1=521.0 %, Resp=17 B/min, Comment=sb 07:31 AM HR=74 bpm, ODRW=281/82 mmhg, JaA8=071.0 %, Resp=21 B/min 07:36 AM HR=56 bpm, ZEJR=851/75 mmhg, SpO2=96.0 %, Resp=16 B/min, Comment=sb 07:37 AM 75mcg Fentanyl ordered per Dr. Herrmann telephone order for chest pain [email or web address] 07:39 AM Time: 07:22 Patient comfortable and pain free: Yes [email or web address] 07:39 AM Time: 07:22LOC: 5 = Fully awake and oriented or at pre-proc level jcallmila 07:39 AM Time: 07:39 Fentanyl 75 mcg Intravenous Given by Thu Fountain RN 07:41 AM Physician arrived 07:41 jckhadar 07:42 AM Time: 07:42 Versed 2 mg Intravenous Given by Thu Fountain RN 07:42 AM HR=60 bpm, FVZR=970/85 mmhg, SpO2=91.0 %, Resp=14 B/min 07:44 AM Time out performed according to hospital policy [facility] 07:44 AM Time: 07:44 11 ml Lidocaine 2% to right groin Subcutaneous Given by Cullen Herrmann 07:46 AM Access obtained by percutaneous puncture. 6Fr 10cm Terumo Lyman sheath placed in right Femoral artery. [id number] [facility] 07:46 AM HR=83 bpm, CRPZ=055/98 mmhg, SpO2=99.0 %, Resp=13 B/min 07:47 AM Time: 07:47 Oxygen on at 6 L/min per Oxy Mask by Tara Roa RN 07:48 AM 5Fr FR 4 catheter inserted over the wire DN viola 07:48 AM RCA angiography performed in multiple views. [email or web address] 07:48 AM Time: 07:48 Nitroglycerin 200 mcg Intracoronary Given by Cullen Herrmnan MD 07:50 AM Catheter removed jckhadar 07:50 AM 5Fr FL 4 catheter inserted over the wire DN viola 07:51 AM LCA angiography performed in multiple views. [email or web address] 07:51 AM Lesion found in 1st Marginal. Pre Stenosis: 99 Pre ALONSO Flow: 2: Partial Flow/Perfusion (> 1 but < 3) jcallihan 07:51 AM HR=84 bpm, XFQL=549/74 mmhg, SpO2=96.0 %, Resp=19 B/min, Comment=sr 07:51 AM Circumflex, Obtuse Marginal, Left Posterior Descending, and Left Posterolateral Coronary Arteries with 99 % stenosis. If graft is supplying this area, 0 % stenosis jcallihan 07:52 AM Coronary Dominance: right jcallihan 07:52 AM PCI Status Urgent jcallihan 07:52 AM 6Fr EBU 3.5 Medtronic guide catheter was used to cannulate the PCI vessel successfully. reused? No jcallihan 07:53 AM .014 [place] 190cm guide wire across target lesion- successful. reused? No jcallan 07:53 AM Inflation device was opened. [facility] 07[facility]53 AM Time: 07:53 Aggrastat 42 ml bolus Intravenous Given by Thu Fountain RN [facility] 07:53 AM Time: 07:53 Aggrastat 12.5mg/250ml 15 ml/hr Intravenous Given by Thu Fountain RN [employer] [facility] 07:54 AM Recorded Pressure: Ao, HR=86, Condition=Condition 1 (Aorta) Ao 102/66/83 07:54 AM Recorded Pressure: Ao, HR=82, Condition=Condition 1 (Aorta) Ao 106/66/84 07:54 AM Time: 07:39LOC: 4 = Oriented but drowsy jcallan 07:54 AM Time: 07:39 Patient comfortable and pain free: Yes jcallihan 07:54 AM 2.0 mm x 15 mm Emerge Monorail balloon across target lesion- successful. reused? No [facility] 07:56 AM Balloon inflated @ 10 doris for 16 seconds [facility] 07:56 AM HR=84 bpm, EYGC=759/81 mmhg, SpO2=97.0 %, Resp=17 B/min, Comment=sr 07:57 AM At 07:56 the ACT was 217 seconds. [facility] 07:57 AM Balloon inflated @ 12 doris for 16 seconds [facility] 07:57 AM Time: 07:57 Heparin 2000 units Intravenous Given by Thu Fountain RN jcallihan 07:58 AM Recorded Pressure: Ao, HR=80, Condition=Condition 1 (Aorta) Ao 94/63/78 07:58 AM Balloon catheter removed intact. jcallihan 07:59 AM 2.5mm x 24mm Promus Premier Rx drug-eluting stent across target lesion- successful Lot #[id number] jc 07:59 AM Stent deployed @ 12 doris for 23 seconds jcallihan 08:01 AM Stent delivery system removed intact. jcallihan 08:01 AM HR=81 bpm, TWNN=654/85 mmhg, JoZ5=214.0 %, Resp=18 B/min, Comment=sr 08:01 AM 5Fr Pigtail catheter inserted over the wire [facility] jcallan 08:02 AM Catheter selectively placed in left ventricle jcallihan 08:02 AM Bolus angiogram of left Ventricle complete: 10 ml/sec for a total of 30 mls jcallihan 08:02 AM Recorded Pressure: LV, HR=76, Condition=Condition 1 (Left Ventricle) LV 108/-9/4 08:03 AM Recorded Pressure: LV, Ao, HR=82, Condition=Condition 1 (Left Ventricle) LV 116/-7/8, (Aorta) Ao 117/73/93 08:03 AM Catheter removed jcallihan 08:04 AM Recorded Pressure: Ao, HR=85, Condition=Condition 1 (Aorta) Ao 133/71/95 08:06 AM HR=80 bpm, VYSO=626/92 mmhg, WpA9=000.0 %, Resp=22 B/min, Comment=sr 08:09 AM Procedure completed at 08:09 04/13/2018 jcallihan 08:10 AM Did you address ALONSO flow and Dominance? Yes jcallihan 08:11 AM Sign out completed: Radiation Dose 270 mGy, 29.23 Gy/cm2 Fluoro Time: 3.0 Isovue 370 - 200ml contrast 111 ml given by Gilbert Palma. Complications: NoneCardiac Rehab Consult needed: YesConfirmed administered medications: Yes jcallihan 08:11 AM Isovue 370 - 200ml,1 Bottle(s) used. jcallihan 08:11 AM EKG atypical for STEMI per Dr. Herrmann [facility] 08:11 AM HR=74 bpm, ALJP=617/86 mmhg, DuS3=894.0 %, Resp=27 B/min, Comment=sr 08:11 AM Estimated Blood Loss: less than 20cc jcallmila 08:12 AM At 08:12 the ACT was 179 seconds. jcallihkristine 08:12 AM Post ECG NSR jcallihkristine 08:12 AM Post Blood Pressure 126/86 jcallihkristine 08:13 AM 08:12 Post Pulses Bilateral DP & PT 2+ jcallmila 08:13 AM 08:13 Post Pulses Bilateral radial 2+ jcallmila 08:13 AM Information taught Cardiac Cath, PCI, and Perclose jcallmila 08:13 AM Arterial sheath pulled, Perclose closure device used and was Successful [id number] S/N. allkristine 08:16 AM Education needs Procedure, Plan of Care, and Responsibilities of Patient in Care [facility] 08:16 AM Time: 08:16 Versed 1 mg Intravenous Given by Thu Fountain RN 08:17 AM HR=84 bpm, UCSY=340/79 mmhg, SpO2=97.0 %, Resp=19 B/min, Comment=sr 08:17 AM Time: 08:17 Fentanyl 25 mcg Intravenous Given by Thu Fountain RN 08:17 AM Learning barriers :None [facility] 08:17 AM Education Methods Verbal [facility] 08:17 AM Education evaluation Able to repeat information [facility] 08:18 AM Family placed in consult room. [facility] 08:18 AM Complications: None viola 08:20 AM Time: 08:20 Versed 1 mg Intravenous Given by Thu Fountain RN 08:20 AM Time: 08:20 Fentanyl 25 mcg Intravenous Given by Thu Fountain RN 08:21 AM Time: 08:21 Versed 1 mg Intravenous Given by Thu Fountain RN 08:21 AM Time: 08:21 Fentanyl 25 mcg Intravenous Given by Thu Fountain RN 08:22 AM HR=77 bpm, QWGG=837/79 mmhg, SpO2=94.0 %, Resp=19 B/min, Comment=sr 08:26 AM HR=71 bpm, GSAP=578/73 mmhg, SpO2=99.0 %, Resp=13 B/min, Comment=sr 08:26 AM Time: 08:26 Plavix 600 mg Orally Given by Thu Fountain RN 08:28 AM Lesion found in Proximal RCA. Pre Stenosis: 20 Pre ALONSO Flow: [email or web address] 08:28 AM Lesion found in Distal RCA. Pre Stenosis: 70 Pre ALONSO Flow: jcallihan 08:28 AM Lesion found in Proximal LAD. Pre Stenosis: 40 Pre ALONSO Flow: jcallihan 08:29 AM Proximal Left Anterior Descending Coronary Artery with 40% stenosis. If graft is supplying this territory, 0 % stenosis. jcallihan 08:29 AM Right Coronary, Right Posterior Descending Arteries with Right Posterolateral and Acute Marginal branches with 70 % stenosis. If graft is supplying this area, 0 % stenosis jcallihan 08:29 AM Site status No bleeding/hematoma - Rt Groin as reported by Xuan Sánchez RT (R) at 08:29 jcallihan 08:29 AM Opsite applied jcallihan 08:33 AM Report given to Anisha ABARCA Pt taken to ICU Room #3. 08:33 jcallihan 08:33 AM Plavix, Effient or Brilinta given Yes jcallihan 08:33 AM Patient out of room: 08:33 jcallihan Complications Complication None None Hemodynamics Pressures Site Systolic/A Wave Diastolic/V Wave Mean AO 102 66 83 AO 106 66 84 AO 94 63 78 LV 108 -9 4 LV 116 -7 8 AO 117 73 93 AO 133 71 95 Post Procedure Information Blood Pressure: 126/86 mmHg Rhythm: NSR Post procedural instructions were given Closure Device Time Device Success/Fail 04/13/2018 8:19:00 AM Perclose ProGlide Successful Site Checks Time Location Status Staff Sheath In? Note 08:29 AM Rt Groin No bleeding/hematoma Sites, Xuan RT (R) Pulses Time Site Pre-Procedure Post-Procedure Note 8:12:00 AM Bilateral DP & PT 2+ 8:13:00 AM Bilateral radial 2+ Updated by Xuan Sánchez RT (R) on 04/13/2018 6:04:10 PM Xuan Sánchez RT electronically signed on 04/13/2018 6:05:25 PM with status of Final
--- NOTE | 2018-04-14 02:13 | Electrocardiograph Report ---
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
--- NOTE | 2018-04-14 02:15 | Electrocardiograph Report ---
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
--- NOTE | 2018-04-14 02:15 | Electrocardiograph Report ---
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
--- NOTE | 2018-04-14 02:16 | Electrocardiograph Report ---
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
[2018-04-14 03:35] LABS: Basophils % 0.3 %; Eosinophils # 0.1 K/mcL (0.0-0.6); Eosinophils % 0.8 %; Hematocrit 44.6 % (37.5-50.1); Immature Granulocytes % 0.4 % (0-4); Immature Platelets 4.2 % (1.1-6.1); Lymphocytes # 1.9 K/mcL (0.6-4.6); Lymphocytes % 16.8 %; Mean Corpuscular HGB Conc 33.6 g/dL (31.6-35.5); Mean Corpuscular Hemoglobin 28.7 pg (28.0-33.3); Mean Corpuscular Volume 85.4 fL (83.0-100.0); Mean Platelet Volume 10.3 fL (9.4-12.4); Monocytes # 0.7 K/mcL (0.0-1.3); Monocytes % 6.2 %; Neutrophils # 8.5 K/mcL (1.6-8.9); Platelet Count 213 K/mcL (140-400); Red Blood Count 5.22 M/mcL (4.19-5.50); Red Cell Distribution Width 13.6 % (11.5-14.5); Segmented Neutrophils % 75.5 %
[2018-04-14 04:00] LABS: BUN/Creatinine Ratio 7 (6-26); Blood Urea Nitrogen 5 mg/dL (6-20); Carbon Dioxide 25 mEq/L (23-29); Chloride 107 mEq/L (98-107); Glucose 106 mg/dL (70-105); Osmolality,Calculated 282 (280-300); Potassium 3.7 mEq/L (3.5-5.1); Sodium 137 mEq/L (136-145); eGFR For Non-African Americans > 60 (> 60)
[2018-04-14] MEDS: *HR* Enoxaparin 40 MG/0.4 ML SYRINGE SQ SCH (06:16)
[2018-04-14] MEDS: Aspirin 81 MG TAB.CHEW PO SCH (07:57)
--- NOTE | 2018-04-14 11:34 | Cardiology Progress Note ---
Date of Encounter: 04/14/18 Time of Encounter: 11:00 Assessment and Plan (1) Acute NV Current Visit: Yes Status: Acute Atypical EKG with borderline inferolateral ST elevation. Patient had ongoing severe chest pain despite medications and was recommended for emergent LHC. Leukocytosis in this setting suggestive of acute NV. LHC completed and he received KADIE to the OM. There was a 40% stenosis in the proximal LAD and 60% stenosis in the dRCA remaining. EF 55%. Post procedure he did have runs of NSVT up to 17 beats long in the setting of hypokalemia. Potassium replacement given. Unable to tolerate bb due to bradycardia. Check Mg. TTE pending. No complications from right femoral access site. Importance of DAPT with asa and plavix uninterrupted for minimum of one year discussed and he voiced understanding. Continue statin. Activity restrictions reviewed as stated above.Cardiac rehab ordered. Step down to telemetry. Qualifiers: Myocardial infarction type: unspecified Involved coronary artery: other coronary artery Qualified Code(s): I21.29 - ST elevation (STEMI) myocardial infarction involving other sites (2) Bradycardia Current Visit: Yes Status: Acute HR noted to be consistently in the low 50's at rest. No pauses seen. HR increases with activity. Denies dizziness or lightheadedness. Continue to monitor. (3) Nicotine dependence Current Visit: Yes Status: Acute Smoking cessation counseled, nicotine patch offered. He states that he will attempt to quit. The assessment and plan as outlined above was discussed with the patient and/or family members who expressed understanding and agreement. All questions were answered. Qualifiers: Nicotine product type: cigarettes Substance use status: uncomplicated Qualified Code(s): F17.210 - Nicotine dependence, cigarettes, uncomplicated (4) Hypokalemia Current Visit: Yes Status: Acute Potassium 3.7, continue oral replacement. Discussion w patient/family: The assessment and plan as outlined above was discussed with the patient and/or family members who expressed understanding and agreement. All questions were answered. Thank you for involving us in the care of your patient. Please call with any questions. Subjective Principal diagnosis: Acute NV Interval history: Denies recurrent chest pain. c/o palpitations yesterday. Noted to have runs of VT. Objective Vital Signs, Last 4 Hours Temp Pulse Resp BP Pulse Ox 04/14/18 10:00 56 19 108/74 97 04/14/18 09:00 55 12 119/81 99 04/14/18 08:00 98.1 F 57 21 110/79 98 General: Conversant, No Apparent Distress HEENT: Atraumatic, Normocephaly, Mucus Membranes Moist Neck: No JVD, Normal carotid pulses Cardiac: Reg Rate and Rhythm, Normal S1 and S2, No Murmur, Other Lungs: Normal Breath Sounds, No Wheeze, Rales, Rhonchi Neuro: Alert and responsive, No focal deficits noted Abdomen: Soft, Non-Tender Skin: No rashes noted on visualized skin Musculoskeletal: No Chest Wall Tenderness Extremities: No Clubbing, No Cyanosis, No Edema, Normal Pulses, Other (Right femoral access dressing removed. No hematoma. ) Results 04/14/18 03:18 04/14/18 03:18 Lab Results 04/14/18 0818 03:18 03:18 WBC 11.2 H Hgb 15.0 D Hct 44.6 Plt Count 213 Sodium 137 Potassium 3.7 D Chloride 107 Carbon Dioxide 25 BUN 5 L Creatinine 0.68 L Glucose 106 H Calcium 9.0 Magnesium 2.0 - Imaging and Cardiology Echo: pending - EKG Interpretation EKG results cardiology: personally reviewed Consult Discharge Plan - Plan Referrals: NONE,PCP [Primary Care Provider] -
[2018-04-15 05:34] LABS: Basophils % 0.3 %; Eosinophils # 0.2 K/mcL (0.0-0.6); Eosinophils % 2.1 %; Hematocrit 44.3 % (37.5-50.1); Immature Granulocytes % 0.3 % (0-4); Lymphocytes # 2.2 K/mcL (0.6-4.6); Lymphocytes % 23.2 %; Mean Corpuscular HGB Conc 33.4 g/dL (31.6-35.5); Mean Corpuscular Hemoglobin 28.6 pg (28.0-33.3); Mean Corpuscular Volume 85.5 fL (83.0-100.0); Mean Platelet Volume 10.7 fL (9.4-12.4); Monocytes # 0.6 K/mcL (0.0-1.3); Monocytes % 6.8 %; Neutrophils # 6.3 K/mcL (1.6-8.9); Platelet Count 203 K/mcL (140-400); Red Blood Count 5.18 M/mcL (4.19-5.50); Red Cell Distribution Width 13.6 % (11.5-14.5); Segmented Neutrophils % 67.3 %
[2018-04-15 05:40] LABS: Hemoglobin 14.8 g/dL (12.9-16.9)
[2018-04-15 05:47] LABS: BUN/Creatinine Ratio 9 (6-26); Blood Urea Nitrogen 7 mg/dL (6-20); Calcium 9.1 mg/dL (8.6-10.3); Carbon Dioxide 23 mEq/L (23-29); Chloride 105 mEq/L (98-107); Glucose 97 mg/dL (70-105); Osmolality,Calculated 280 (280-300); Potassium 3.9 mEq/L (3.5-5.1); Sodium 136 mEq/L (136-145); eGFR For Non-African Americans > 60 (> 60)
[2018-04-15] MEDS: *HR* Enoxaparin 40 MG/0.4 ML SYRINGE SQ SCH (05:57)
[2018-04-15] MEDS ORDERED: Nicotine 21 MG PATCH.TD24 TD PRN (07:34)
[2018-04-15] MEDS ORDERED: Ondansetron 4 MG/2 ML VIAL IVP PRN (07:34)
[2018-04-15] MEDS ORDERED: Aspirin 81 MG TAB.CHEW PO SCH (09:00)
[2018-04-15 14:52] VITALS: BP 100/74
--- NOTE | 2018-04-15 15:03 | Discharge Summary ---
Orders not resulted at time of discharge: Pending orders 04/14/18 07:00 ECG 12 lead ECG [ECG] Routine Date of Encounter: 04/16/18 Time of Encounter: 14:55 - Discharge Diagnosis (1) Acute [place] Priority: Primary Status: Acute Qualifiers: Myocardial infarction type: unspecified Involved coronary artery: other coronary artery Qualified Code(s): I21.29 - ST elevation (STEMI) myocardial infarction involving other sites (2) Bradycardia Priority: Primary Status: Acute (3) Nicotine dependence Priority: Secondary Status: Acute Qualifiers: Nicotine product type: cigarettes Substance use status: uncomplicated Qualified Code(s): F17.210 - Nicotine dependence, cigarettes, uncomplicated (4) Hypokalemia Priority: Primary Status: Acute - Hospital Course Hospital course: Mr. Silva is a 43 year old male who presented with chest pain. EKG showed borderline ST elevation. He continued to have chest pain despite medical therapy and it was decided to take him to the hemodialysis lab technician emergently. LHC completed and he received KADIE to the OM. There was a 40% stenosis in the proximal LAD and 60% stenosis in the dRCA remaining. EF 55%. Post procedure he did have runs of NSVT up to 17 beats long in the setting of hypokalemia. Potassium replacement given. NSVT resolved after 24 hours. He was started on low dose beta-greg due to bradycardia, HR upper 40's to 50's. He denies symptoms with his bradycardia and HR increased appropriately with ambulation. There was no complication from the procedure. Denies recurrent chest pain. No complications from right femoral access site. Importance of DAPT with asa and plavix uninterrupted for minimum of one year discussed and he voiced understanding. Continue statin and BB. Low dose potassium RX given. Recommend monitoring of potassium in out-pt setting. Activity restrictions reviewed as stated above.Cardiac rehab ordered. Out-pt f/u will be coordinated by [facility]. - Time Spent with Patient Total time spent providing and/or coordinating discharge services: - Discharge Medications Prescriptions: Aspirin 81 mg PO DAILY #30 tab.chew Clopidogrel [Plavix] 75 mg PO DAILY #30 tablet Metoprolol [Lopressor] 12.5 mg PO BID #30 tablet Potassium Chloride [Klor-Con Sprinkle] 10 meq PO DAILY #14 capsule.er Rosuvastatin [Crestor] 40 mg PO HS #30 tablet Home Medications: Aspirin 81 mg PO DAILY #30 tab.chew 04/15/18 [Rx] Clopidogrel [Plavix] 75 mg PO DAILY #30 tablet 04/15/18 [Rx] Metoprolol [Lopressor] 12.5 mg PO BID #30 tablet 04/15/18 [Rx] Potassium Chloride [Klor-Con Sprinkle] 10 meq PO DAILY #14 capsule.er 04/15/18 [ Rx] Rosuvastatin [Crestor] 40 mg PO HS #30 tablet 04/15/18 [Rx] Allergies/Adverse Reactions: 3 Allergy/AdvReac Type Severity Reaction Status Date / Time No Known Allergies Allergy Verified 04/13/18 16:30 Date of admission: 04/13/18 06:48 Primary care physician: PCP NONE Consults: 04/13/18 08:39 Consult to Cardiac Rehabilitation-Phase1 [CONS] Routine Comment: Reason for Consult: AMI Call Completed: Yes Consult to Nurse Navigator [CONS] Routine Comment: 04/13/18 12:58 Consult to Ham Doctor [CONS] Routine Reason for SW Consult: financial concerns, Pt is self pay Discharging clinician: Elmer Goyal Anticipated date of discharge: 04/15/18 Physical Examination Vital Signs, Last 4 Hours Pulse Resp BP Pulse Ox 04/15/18 13:00 52 18 100/74 99 General: Conversant, No Apparent Distress HEENT: Atraumatic, Normocephaly, Mucus Membranes Moist Neck: No JVD, Normal carotid pulses Cardiac: Reg Rate and Rhythm, Normal S1 and S2, No Murmur Lungs: Normal Breath Sounds, No Wheeze, Rales, Rhonchi Neuro: Alert and responsive, No focal deficits noted Abdomen: Soft, Non-Tender Skin: No rashes noted on visualized skin Musculoskeletal: No Chest Wall Tenderness Extremities: No Clubbing, No Cyanosis, No Edema, Normal Pulses - Patient Status Disposition: Home, Self-Care Condition: Good Overall status at discharge: patient is back to baseline - Discharge Instructions Instructions: Metoprolol (By mouth), Potassium Chloride (By mouth), Aspirin ( By mouth), Clopidogrel (By mouth), Rosuvastatin (By mouth), Myocardial Infarction (DC), Chest Pain (DC), Left Heart Catheterization (DC), How to Stop Smoking (DC), Cigarette Smoking and Your Health (GEN) Follow Up With: NONE,PCP [Primary Care Provider] - Additional Instructions: RISK FACTORS: STOP SMOKING: If you smoke, STOP. Smoking or tobacco use significantly increases your risk of heart disease because nicotine causes the arteries to narrow or constrict. It also causes fats to stick to the artery. Your chances of having a heart attack are greatly increased if you continue to smoke. For more information, call the education line for smoking cessation 2-899-TFTVMYQ EAT A LOW FAT/CHOLESTEROL/SODIUM DIET: This diet may help reduce your chances of having a heart attack. LIFTING: Avoid lifting anything more than 10 pounds for 5-7 days Prior to straining, laughing, sneezing and/or coughing, apply manual pressure directly over insertion site. ACTIVITY: You may walk or climb stairs as tolerated You can resume sexual activity as tolerated In general, you are encouraged to engage in a minimum of 30 minutes or more of moderate intensity physical activity, such as brisk walking, daily or at least 3 -4 times weekly BATHING Do not submerge the site into water (bath tub, hot tub, swimming pool) for 1 week. This can be a source for infection into the blood stream. You may shower after 24 hours SITE CARE: After 24 hours, you may remove the dressing and leave the site open to air. Keep the site clean and dry. Clean gently and pat dry. You can expect bruising and tenderness that gradually resolve within a week or two. Return to work as instructed per your physician Resume driving as instructed per physician Keep all scheduled follow up appointments Resume medications as instructed IMPORTANT: If prescribed a Platelet Aggregation Inhibitor such as, Plavix, Brilinta or Effient: Duration of therapy is minimum one year These medications are often used in combination with Aspirin in prevention of future heart attacks Never discontinue unless consult with your Sonographer STROKE (CVA) Risk factors for a stroke are: Age, cigarette smoking, diabetes, excessive alcohol consumption, family history, high blood pressure, overweight, physical inactivity, prior stroke, heart attack, diagnosis of carotid artery stenosis or other artery disease. Warning signs: Sudden numbness or weakness of the face, arm or leg; especially on one side of the body, sudden confusion, trouble speaking or understanding, sudden trouble seeing in one or both eyes, sudden trouble walking, dizziness, loss of balance or coordination, sudden severe headache with no cause. Call 911 or go to the Emergency Room. CONGESTIVE HEART FAILURE: If you have been diagnosed with Congestive Heart Failure (CHF) and your symptoms return, make an appointment with your physician Weigh yourself daily. Notify your physician if you have a weight gain of two or more pounds in one day or five or more pounds in one week. If you experience any difficulty breathing, please call 911 BLEEDING: Although the risk of bleeding is minimal, it can happen. If you have any bleeding from the site, apply firm pressure above the puncture site for 10-15 minutes. If the bleeding does not stop, continue manual pressure and call 911 Contact your physician if: You develop a fever greater than 101 degrees Fahrenheit Your site becomes reddened or has any drainage You have an increase in pain or burning at the site or if a large knot forms at the site. If you experience chest pain, shortness of breath, dizziness, or extreme tiredness, stop the activity and rest. Please notify your physicians office if you experience any of these symptoms and they are not relieved by rest please call 911! - Diet and Activity Activity: increase activity as tolerated
[2018-04-16] MEDS ORDERED: *HR* Enoxaparin 40 MG/0.4 ML SYRINGE SQ SCH (06:00)
== END 2018-04-15 16:55 | disposition home or self-care (01) | DRG 247 ==
LOC: EMEROO 05:43 → ICNU 06:48
PROVIDERS: ADMIT Internal Medicine Interventional Cardiology; ATTEND Internal Medicine